=== PATIENT | male | born 1955 | race Caucasian/White ===

== ENCOUNTER 2016-11-15 05:54 | Observation (INO) | payer OTHER ==
--- NOTE | 2016-11-15 06:05 | EDPHY ---
H & P Stated Complaint: CHEST PAIN WOKE FROM SLEEP.1 STENT YEAR AGO HPI/ROS: Chief Complaint: Chest discomfort HPI: 61-year-old male with a history of coronary artery disease status post cardiac stent urine half ago. Patient woke up at 3 o'clock this morning with the sensation of lightheadedness and discomfort in his chest. It feels exactly like his symptoms a urine half ago prior to his cardiac stenting. He has been having some mild discomfort or lightheadedness for the last 2 days and some shortness of breath on exertion. He has never had pain with his symptoms in the past. No fevers or chills. No cough. No nausea or vomiting. Is not actually describing any pain at this time. ROS: 10 point Review of Systems is negative except as noted in the HPI. PMH: Coronary artery disease status post stenting x1, hyperlipidemia, colitis Medications: Metoprolol, statin, vitamin D, aspirin, folic acid, Asacol Allergies: No known drug allergies Social History: No smoking, occasional alcohol, no recreational drug use Family History: No family history of coronary artery disease Physical Exam: Gen: Awake, Alert, No Distress HEENT: Nose: no rhinorrhea Eyes: PERRLA, EOMI Mouth: Moist mucosa Neck: Supple, no JVD Chest: nontender, lungs clear to auscultation Heart: S1, S2 normal, no murmur Abd: Soft, non-tender, no guarding Back: no CVA tenderness, no midline tenderness Ext: no edema, non-tender Skin: no rash Neuro: CN II-XII intact, Sensation grossly intact, Strength 5/5 in bilateral upper and lower extremities - Personal History Current Tetanus/Diphtheria Vaccine: Unsure Current Tetanus Diphtheria and Acellular Pertussis (TDAP): Unsure - Medical/Surgical History Hx Asthma: No Hx Chronic Respiratory Disease: No Hx Diabetes: No Hx Cardiac Disease: Yes Hx Renal Disease: No Hx Cirrhosis: No Hx Alcoholism: No Hx HIV/AIDS: No Hx Splenectomy or Spleen Trauma: No Other PMH: PSH: L thumb;. PMH: ulcerative colitis; 1 STENT - Social History Smoking Status: Never smoked Constitutional: Initial Vital Signs Temperature (C) 36.5 C 11/15/16 05:57 Heart Rate 65 11/15/16 05:57 Respiratory Rate 18 11/15/16 05:57 Blood Pressure 145/83 H 11/15/16 05:57 O2 Sat (%) 97 11/15/16 05:57 O2 Delivery Mode Room Air Allergies/Adverse Reactions: No Known Allergies Allergy (Unverified 11/15/16 06:00) Home Medications: Medication Instructions Recorded Cholecalciferol Vit D3 [Vitamin D3 2,000 units PO DAILY 07/25/15 2000 units] Folic Acid [Folic Acid 1 MG (*)] 1 mg PO DAILY 07/25/15 Mesalamine [Lialda] 2.4 gm PO BID 07/25/15 Aspirin [Aspirin 325 mg (*)] 325 mg PO DAILY #0 tab 07/27/15 Atorvastatin Calcium [Lipitor 40 40 mg PO DAILY #30 tab 07/27/15 mg (*)] Metoprolol Tartrate [Lopressor 25 25 mg PO BID #60 tab 07/27/15 mg (*)] Medical Decision Making - Diagnostics EKG Interpretation: ECG time 6:07 a.m. sinus rhythm with a rate of 66, normal axis, normal intervals , no acute ST or T-wave changes, impression: Normal ECG. Imaging Results: Chest x-ray: No acute findings per my interpretation. Imaging: I viewed and interpreted images myself ED Course/Re-evaluation: Initial ECG shows no acute ischemia. Chest x-ray is negative. Troponin is pending. Patient presenting with symptoms which are similar to when he presented had a AK little over a year ago. Given his symptomatology in his history he will require admission for further risk stratification evaluation. I have spoke with Dr. Joaquim Rand, hospitalist. He will admit to his service for further evaluation - Data Points Laboratory Results: Laboratory Results 11/15/16 06:20 11/15/16 06:20 11/15/16 11/15/16 06:20 06:20 WBC 7.52 10^3/uL 10^3/uL (3.80-9.50) RBC 4.80 10^6/uL 10^6/uL (4.40-6.38) Hgb 14.9 g/dL g/dL (13.7-17.5) Hct 43.1 % % (40.0-51.0) MCV 89.8 fL fL (81.5-99.8) MCH 31.0 pg pg (27.9-34.1) MCHC 34.6 g/dL g/dL (32.4-36.7) RDW 13.4 % % (11.5-15.2) Plt Count 253 10^3/uL 10^3/uL (150-400) MPV 9.5 fL fL (8.7-11.7) Neut % (Auto) 66.9 % % (39.3-74.2) Lymph % (Auto) 20.6 % % (15.0-45.0) Callahan % (Auto) 8.4 % % (4.5-13.0) Eos % (Auto) 2.7 % % (0.6-7.6) Baso % (Auto) 0.9 % % (0.3-1.7) Nucleat RBC Rel Count 0.0 % % (0.0-0.2) Absolute Neuts (auto) 5.03 10^3/uL 10^3/uL (1.70-6.50) Absolute Lymphs (auto) 1.55 10^3/uL 10^3/uL (1.00-3.00) Absolute Monos (auto) 0.63 10^3/uL 10^3/uL (0.30-0.80) Absolute Eos (auto) 0.20 10^3/uL 10^3/uL (0.03-0.40) Absolute Basos (auto) 0.07 10^3/uL 10^3/uL (0.02-0.10) Absolute Nucleated RBC 0.00 10^3/uL 10^3/uL (0-0.01) Immature Gran % 0.5 % % (0.0-1.1) Immature Gran # 0.04 10^3/uL 10^3/uL (0.00-0.10) Sodium 140 mEq/L mEq/L (134-144) Potassium 5.0 mEq/L mEq/L (3.5-5.2) Chloride 107 mEq/L mEq/L (97-110) Carbon Dioxide 22 mEq/l mEq/l (22-31) Anion Gap 11 mEq/L mEq/L (8-16) BUN 17 mg/dL mg/dL (7-23) Creatinine 1.2 mg/dL mg/dL (0.7-1.3) Estimated GFR > 60 Glucose 93 mg/dL mg/dL (70-100) Calcium 10.1 mg/dL mg/dL (8.5-10.4) Troponin I Pending Medications Given: Discontinued Medications Aspirin (Aspirin) 324 mg PO EDNOW ONE Stop: 11/15/16 06:19 Last Admin: 11/15/16 06:32 Dose: 324 mg Departure - Departure Disposition: [facility] Inpatient Acute Clinical Impression: Chest pain Condition: Fair Referrals: CHRISTOFER WHITE [Other] - As per Instructions
--- NOTE | 2016-11-15 06:09 | CPEKG ---
Heart Rate: 66 RR Interval: 909 P-R Interval: 176 QRSD Interval: 88 QT Interval: 416 QTC Interval: 436 P [place]: 48 QRS [place]: 23 T Wave [place]: 31 EKG Severity - NORMAL ECG - EKG Impression: SINUS RHYTHM Electronically Signed By: Bridger Pascual 15-Nov-2016 07:06:16
[2016-11-15] MEDS ORDERED: ASPIRIN 81 MG CHEWABLE TAB PO ONE (06:18)
[2016-11-15 06:38] LABS: % IMMATURE GRANULYOCYTES 0.5 % (0.0-1.1); ABSOLUTE IMMATURE GRANULOCYTES 0.04 10^3/uL (0.00-0.10); ADD DIFF? NO; ADD MORPH? NO; ADD SCAN? NO; ATYPICAL LYMPHOCYTE FLAG 10 (0-99); FRAGMENT RBC FLAG 0 (0-99); HEMATOCRIT 43.1 % (40.0-51.0); HEMOGLOBIN 14.9 g/dL (13.7-17.5); LEFT SHIFT FLG 0 (0-99); LIPEMIA HEMOLYSIS FLAG 90 (0-99); MEAN CELL HEMOGLOBIN CONCENTR. 34.6 g/dL (32.4-36.7); MEAN CELL VOLUME 89.8 fL (81.5-99.8); MEAN PLATELET VOLUME 9.5 fL (8.7-11.7); PLATELET CLUMPS FLAG 0 (0-99); PLATELET COUNT 253 10^3/uL (150-400); RED CELL DISTRIBUTION WIDTH 13.4 % (11.5-15.2)
[2016-11-15 07:04] LABS: ANION GAP 11 mEq/L (8-16); CALCIUM 10.1 mg/dL (8.5-10.4); CARBON DIOXIDE 22 mEq/l (22-31); CHLORIDE 107 mEq/L (97-110); CREATININE 1.2 mg/dL (0.7-1.3); GLOMERULAR FILTRATION RATE > 60; GLUCOSE 93 mg/dL (70-100); SODIUM 140 mEq/L (134-144)
[2016-11-15 07:17] LABS: TROPONIN I < 0.012 ng/mL (0-0.034)
[2016-11-15] MEDS ORDERED: ACETAMINOPHEN 325 MG TAB PO PRN (08:14)
[2016-11-15] MEDS ORDERED: ONDANSETRON 4 MG/2 ML VIAL IVP PRN (08:14)
[2016-11-15] MEDS ORDERED: ONDANSETRON DISINTEGRATING 4 MG TAB PO PRN (08:14)
--- NOTE | 2016-11-15 08:45 | GHP ---
[f rep st] HISTORY AND PHYSICAL DATE OF ADMISSION: 11/15/2016 HISTORY OF PRESENT ILLNESS: The patient is a pleasant 61-year-old gentleman with a history of coron ignacio artery disease and who present with vague symptoms, he has been lightheaded and dizzy for the last 2 weeks. It has been different from an anginal equivalent, which is exertional chest burning. He woke up this morning, tried to walk it off. He did not feel well. His symptoms were l argely dizziness, lightheadedness. He did not have vertigo. He did not have nausea or vomiting. Lucas rodriguez has not had shortness of breath. He has not had the exertional burning. He exercises frequently with no decrement in his excised performance. He has been taking his medications as prescribed. No fever, chills, cough, sputum, nausea, vomiting, diarrhea. He does note that he is having 3 bowel movements a day with some blood streaking, consistent with a UC flare. He has never had surgery on his abdomen. REVIEW OF SYSTEMS: Complete 10-point review of systems conducted and negative, except as noted in H PI. PAST MEDICAL HISTORY: 1. CAD with LAD stent placement. He had an 80-90% RCA stenosis. He did have a right coronary arter y that had a PCI done. 2. Hyperlipidemia. 3. Hypertension. 4. Ulcerative colitis. ALLERGIES: No known drug allergies. HOME MEDICATIONS: Metoprolol, mesalamine, folic acid, vitamin D3, atorvastatin, aspirin. SOCIAL HISTORY: He is an engineering research manager, originally from [place]. He enjoys hockey and cycling. Occa sional alcohol. No tobacco. FAMILY HISTORY: Negative for coronary artery disease. PHYSICAL EXAM: 122/79, pulse 57, breathing 18 times a minute, 94% on room air. Afebrile. GENERAL: No acute distress. HEENT: Sclerae anicteric. Oropharynx clear. Mucous membranes moist. NECK: Supple without lymphadenopathy or JVD. LUNGS: Clear to auscultation bilaterally. HEART: S1, S2. Without murmur. ABDOMEN: Soft, nontender, nondistended. LOWER EXTREMITIES: No edema. Calves n ontender. SKIN: Without rash. NEUROLOGIC EXAM: Nonfocal. LABORATORY DATA: White count 7.5, hematocrit 43.1, platelets are 253,000. Sodium is 140, potassium 5.0, chloride 107, bicarbonate 22, BUN 17, creatinine 1.2 which appears to be his baseline. Glucos e 93. Troponin less than 0.012. Chest x-ray, interpreted by me, shows no acute cardiopulmonary disease. EKG, interpreted by me, deborah ws sinus at 66 with normal axis and intervals. There are no ST or T-wave changes. Leads I, L and V 6 have the suggestive of ST-elevation, but I think it is artifactual more than reality. I discussed the case with Dr. Pete Pascual. ASSESSMENT/PLAN: This is a 61-year-old gentleman with coronary artery disease, presents with vague symptoms that are different from his anginal equivalent. 1. Question angina/acute coronary syndrome. We will cycle his troponins and place him on telemetry . I have a low suspicion, but he may be a candidate for a stress test after a 2nd negative troponin . I will discuss the case with Cardiology. I have considered pulmonary embolism and think it unlik thierry. 2. Ulcerative colitis flare. At this point in time, I will not escalate his therapy. He is not an emic. He is not having abdominal pain or fevers. We will follow. 3. Hyperlipidemia. Continue statin. 4. Hypertension. Continue his metoprolol. 5. Prophylaxis. Pharmacologic prophylaxis indicated if in the hospital longer than 24 hours. DISPOSITION: Observation status. /[id number]/MODL
[2016-11-15 09:46] VITALS: RESP 16
[2016-11-15 09:56] VITALS: TEMP 98
[2016-11-15 11:52] VITALS: BP 115/78; PULSE 53; O2SAT 96
[2016-11-15] MEDS ORDERED: FOLIC ACID 1 MG TAB PO SCH (14:00)
[2016-11-15] MEDS ORDERED: azaTHIOprine 50 MG TAB PO SCH (14:00)
[2016-11-15] MEDS ORDERED: ASPIRIN 81 MG CHEWABLE TAB PO SCH (14:00)
[2016-11-15] MEDS ORDERED: ATORVASTATIN CALCIUM 40 MG TAB PO SCH (14:00)
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
[2016-11-15] MEDS ORDERED: METOPROLOL TARTRATE 25 MG TAB PO SCH (21:00)
[2016-11-15] MEDS ORDERED: NON-FORMULARY NEW DRUG (Mesalamine [Lialda] 2.4 GM) PO SCH (21:00)
[2016-11-16] MEDS ORDERED: ENOXAPARIN 40 MG/0.4 ML SYR SC SCH (09:00)
== END 2016-11-15 15:00 | disposition home or self-care (01) ==
LOC: INTOOBSV 07:15 → F2W 09:47
PROVIDERS: ADMIT Internal Medicine; ATTEND Internal Medicine
DX: H81.399 Other peripheral vertigo, unspecified ear (principal); I25.10 Atherosclerotic heart disease of native coronary artery without angina pectoris; I10 Essential (primary) hypertension; E78.5 Hyperlipidemia, unspecified; Z95.5 Presence of coronary angioplasty implant and graft; S09.90XD Unspecified injury of head, subsequent encounter; V19.9XXD Pedal cyclist (driver) (passenger) injured in unspecified traffic accident, subsequent encounter; Y93.55 Activity, bike riding
CPT/HCPCS: 70450; 93005; 99285; G0378; J7500

== ENCOUNTER 2017-12-27 18:28 | Emergency (ER) | payer OTHER ==
--- NOTE | 2017-12-27 18:39 | CPEKG ---
Heart Rate: 68 RR Interval: 882 P-R Interval: 164 QRSD Interval: 84 QT Interval: 408 QTC Interval: 434 P [place]: 63 QRS [place]: 31 T Wave [place]: 39 EKG Severity - NORMAL ECG - EKG Impression: SINUS RHYTHM Electronically Signed By: Sofia Hughes 28-Dec-2017 22:41:54
--- NOTE | 2017-12-27 18:49 | EDPHY ---
HPI/HX/ROS/PE/MDM Narrative: CHIEF COMPLAINT: Chest pain HISTORY OF PRESENT ILLNESS: The patient is a 62 y/o male with a history of cardiac stents and ulcerative colitis complaining of a waxing and waning, abnormal sensation in his chest for the past week. Around 2 years ago he developed exertional chest pain, which required the placement of a cardiac stent. The symptoms he has been experiencing for the last week are not at all similar to the chest pain he had prior to his cardiac stent. He describes feeling and abnormal sensation in his chest, feeling somewhat foggy and out of it. He has also had intermittent lightheaded and dizzines. He has not had a fainting episode. He does not feel palpitations. He has noticed that these symptoms would improve if he were to exercise. No pleuritic chest pain. Denies history of DVT or PE. He took 4 baby aspirin prior to arriving to the emergency department. He also reports that he has had a flare of his ulcerative colitis and has been having diarrhea for the past week; he has around 5-6 episodes of diarrhea a day. Denies blood in his stool. With prior ulcerative colitis flares he develops joint pain. Last took prednisone 10 years ago for a flare up. No fever, chills, shortness of breath, palpitations, vomiting, urinary complaints, headache. Followed by Dr. Menjivar, nuclear medicine technician. REVIEW OF SYSTEMS: Aside from elements discussed in the HPI, a comprehensive 10-point review of systems was reviewed and is negative. PAST MEDICAL HISTORY: Cardiac stent, ulcerative colitis, left thumb surgery SOCIAL HISTORY: at bedside, lives in [place], self-employed VITAL SIGNS: Reviewed by me GENERAL: Well-developed, well-nourished, resting comfortably in no respiratory distress. HEENT: Atraumatic. Eyes: No icterus, no injection. Mouth: moist mucous membranes. No erythema or lesions. Neck: supple with no adenopathy. LUNGS: Clear to auscultation bilaterally, no wheezes, rhonchi or rales. No chest wall tenderness to palpation. No crepitus. CARDIAC: Regular rate and rhythm, no rubs, murmurs or gallops. ABDOMEN: Soft, nontender, nondistended, bowel sounds normal. BACK: No CVA tenderness. EXTREMITIES: No trauma. No edema. Range of motion is normal throughout. NEURO: Alert and oriented, grossly nonfocal. SKIN: Warm and dry, no rash. PSYCHIATRIC: Normal mentation, no agitation. Portions of this note were transcribed by a medical illustrator. I personally performed a history, physical exam, medical decision making, and confirmed accuracy of information the transcribed note. ED Course: The patient is a 62 y/o male with a history of cardiac stents and ulcerative colitis complaining of a waxing and waning, abnormal sensation in his chest as well as diarrhea for the past week. He has a normal physical exam. Labs, EKG, and chest x-ray ordered. 1836: 12-LEAD EKG: Please see the full report in [facility]. My interpretation: Normal sinus rhythm with a rate of 68. 2021: I reviewed patient's chest x-ray which is negative for acute findings. Consulted with Dr. Turcios, nuclear medicine technician, regarding patient. Dr. Turcios suggested he thinks the symptom complex is most likely related to a vasovagal event stabbing from the patient's GI upset. Does not sound particularly ischemic. Symptom complex does sound more like an arrhythmia. I offer the patient admission to the hospital. We discussed possibility of an arrhythmia, vasovagal event, a something possibly ischemic. Patient feels that the symptoms are not similar to his prior history of anginal episodes. He will continue to monitor the symptoms and observe for any obvious a arrhythmias or bradycardia during the symptomatic. Discussed follow up on Friday. Strict return precautions provided; patient is comfortable with this plan. MDM: Differential diagnoses for the patient's symptom complex was considered including but not limited to arrhythmia, bradycardia, vasovagal event, anxiety, electrolyte abnormalities. - Data Points Imaging Results: CXR: Impression: Normal chest. Dictated By: Vincent Mckeon MD Imaging: I viewed and interpreted images myself Laboratory Results: Laboratory Results 12/27/17 18:43 12/27/17 18:43 Point of Care Test Results: Chemistry 12/27/17 18:47 POC Troponin I 0.00 ng/mL ng/mL (0.00-0.08) General Time Seen by Provider: 12/27/17 18:45 Initial Vital Signs: Initial Vital Signs Temperature (C) 36.7 C 12/27/17 18:30 Heart Rate 67 12/27/17 18:30 Respiratory Rate 17 12/27/17 18:30 Blood Pressure 139/82 H 12/27/17 18:30 O2 Sat (%) 94 12/27/17 18:30 O2 Delivery Mode Room Air Allergies/Adverse Reactions: No Known Allergies Allergy (Verified 12/27/17 18:29) Home Medications: Medication Instructions Recorded Cholecalciferol Vit D3 [Vitamin D3 2,000 units PO DAILY 07/25/15 2000 units] Folic Acid [Folic Acid 1 MG (*)] 1 mg PO DAILY 07/25/15 Mesalamine [Lialda] 2.4 gm PO BID 07/25/15 Atorvastatin Calcium [Lipitor 40 40 mg PO DAILY #30 tab 07/27/15 mg (*)] Aspirin [Aspirin 81mg (*)] 81 mg PO DAILY 11/15/16 Meclizine HCl [Meclizine HCl 25 mg 25 mg PO Q6 PRN #20 tab 11/15/16 (RX,OTC)] Metoprolol Tartrate [Lopressor 25 12.5 mg PO BID 11/15/16 mg (*)] Multivitamins [Multivitamin (*)] 1 each PO DAILY 11/15/16 azaTHIOprine [Imuran 50 mg (*)] 100 mg PO DAILY 11/15/16 Departure - Departure Disposition: Home, Routine, Self-Care Clinical Impression: Abnormal chest sensation Chest pain Qualifiers: Chest pain type: other chest pain Qualified Code(s): R07.89 - Other chest pain Condition: Good Instructions: Chest Pain (ED), Heart Palpitations (ED), Lightheadedness (ED) Additional Instructions: You have been offered admission to the hospital for further monitoring. You may return for further monitoring or other eval if you desire. Please return if you develop prolonged episodes of lightheadedness/ fogginess/ chest pain/ fainting/ palpitations/ or other concerns. Follow up with your nuclear medicine technician on Friday without fail to obtain a Halter monitor. Be sure that [facility] is aware that this is an emergency department follow up visit and that I discussed the case with Dr Turcios. Return to the Emergency Department for fever, shortness of breath, increasing pain or other worsening of condition. Referrals: Cj Menjivar MD [Primary Care Provider] - As per Instructions
[2017-12-27 19:35] LABS: PLATELET COUNT 290 10^3/uL (150-400)
[2017-12-27 21:42] VITALS: BP 116/80
== END 2017-12-27 21:41 | disposition home or self-care (01) ==
DX: R07.89 Other chest pain (principal); R09.89 Other specified symptoms and signs involving the circulatory and respiratory systems; Z79.82 Long term (current) use of aspirin
CPT/HCPCS: 84484-PO

== ENCOUNTER → 2018-10-26 | Outpatient (CLI) | payer OTHER | LOC: FIMAGING 16:43 | PROVIDERS: ATTEND Internal Medicine | DX: N18.3 Chronic kidney disease, stage 3 (moderate) (principal) ==